=== PATIENT | female | born 1990 | race Caucasian/White ===

== ENCOUNTER 2021-03-22 20:22 | Inpatient (IN) | payer MEDICAID, OTHER ==
[~2021-03-22] VITALS: Ht 167.6 cm; Wt 71.7 kg
--- NOTE | 2021-03-22 20:22 | NUR ---
[id number] FROM LONG-TERM REACTION FROM COMPAZINE, GIVEN BENADRYL 50MG PO, AND 50MG IM, NO RELIEF. PT HX OF DRUG ABUSE HEROIN. GENERALIZED RASHES. A/OX4. PT C/O SOB; SATTING AT 99%. CONNECTED PT TO POX AND MONITOR. [employer] AT PT'S BEDSIDE
--- NOTE | 2021-03-22 22:04 | NUR ---
PT IN NO DISTRESS AT THIS TIME. VSS
[2021-03-22] MEDS ORDERED: IV NS 0.9% 1,000 ML BAG IV ONE (22:30)
--- NOTE | 2021-03-22 22:32 | NUR ---
RAC #20G S/L; PATENT AND INTACT
[2021-03-22 23:00] LABS: BASOPHILS % (AUTO) 0.3 % (0.0-2.0); HEMATOCRIT 45 % (33-45); HEMOGLOBIN 15.4 g/dL (11.5-14.8); LYMPHOCYTES # (AUTO) 1.3 K/uL (0.8-4.8); LYMPHOCYTES % (AUTO) 8.1 % (20.0-44.0); MEAN CORPUSCULAR HGB CONC 34 g/dl (31.0-36.0); MEAN CORPUSCULAR VOLUME 88 fL (82-100); MONOCYTES # (AUTO) 0.9 K/uL (0.1-1.30); MONOCYTES % (AUTO) 5.5 % (2.0-12.0); NEUTROPHILS # (AUTO) 13.7 K/uL (1.8-8.9); NEUTROPHILS % (AUTO) 86.1 % (43.0-81.0); PLATELET COUNT (AUTO) 182 K/uL (150-450); RED BLOOD CELL COUNT(AUTO) 5.15 MIL/uL (4.0-5.2); WHITE BLOOD COUNT (AUTO) 15.9 K/uL (4.3-11.0)
--- NOTE | 2021-03-22 23:15 | NUR ---
COLLECTED URINE AND SENT TO LAB
[2021-03-22 23:26] LABS: CALCIUM, SERUM 9.8 mg/dL (8.5-10.1); CREATININE 0.8 mg/dL (0.6-1.3); POTASSIUM 4.1 mmol/L (3.5-5.1)
[2021-03-22 23:28] LABS: BILIRUBIN,URINE NEGATIVE (NEGATIVE); COLOR,URINE YELLOW (YELLOW); LEUKOCYTE ESTERASE ,URINE NEGATIVE (NEGATIVE); NITRITE, URINE NEGATIVE (NEGATIVE); PH,URINE 6.5 (5.0-8.0); PROTEIN,URINE NEGATIVE (NEGATIVE); UGLUCOSE NEGATIVE (NEGATIVE); UROBILINOGEN,URINE 0.2 EU/dL (0.2)
[2021-03-22 23:34] LABS: ALBUMIN 4.2 g/dL (3.4-5.0); BILIRUBIN,DIRECT 0.2 mg/dL (0.0-0.2); BILIRUBIN,TOTAL 1.1 mg/dL (0.2-1.0); TOTAL PROTEIN, SERUM 8.2 g/dL (6.4-8.2)
--- NOTE | 2021-03-23 01:00 | NUR ---
LAB [facility] AT PT'S BEDSIDE; PT REFUSED BLOODDRAW AT THIS TIME. JOSE SCHAFER NOTIFIED.
[2021-03-23 01:40] LABS: BASOPHILS % (AUTO) 0.2 % (0.0-2.0); HEMATOCRIT 43 % (33-45); HEMOGLOBIN 14.7 g/dL (11.5-14.8); LYMPHOCYTES # (AUTO) 0.9 K/uL (0.8-4.8); LYMPHOCYTES % (AUTO) 7.9 % (20.0-44.0); MEAN CORPUSCULAR HGB CONC 34 g/dl (31.0-36.0); MEAN CORPUSCULAR VOLUME 88 fL (82-100); MONOCYTES # (AUTO) 0.5 K/uL (0.1-1.30); MONOCYTES % (AUTO) 4.3 % (2.0-12.0); NEUTROPHILS # (AUTO) 9.8 K/uL (1.8-8.9); NEUTROPHILS % (AUTO) 87.6 % (43.0-81.0); PLATELET COUNT (AUTO) 166 K/uL (150-450); RED BLOOD CELL COUNT(AUTO) 4.91 MIL/uL (4.0-5.2); WHITE BLOOD COUNT (AUTO) 11.1 K/uL (4.3-11.0)
[2021-03-23] MEDS ORDERED: IV NS 0.9% 1,000 ML BAG IV ONE (03:00)
[2021-03-23] MEDS ORDERED: ONDANSETRON HCL/PF 4 MG/2 ML VIAL IVP PRN (03:30)
[2021-03-23] MEDS ORDERED: ACETAMINOPHEN 325 MG TABLET PO PRN (03:30)
[2021-03-23] MEDS ORDERED: MORPHINE SULFATE INJ 2 MG/ML DISP.SYRIN IV PRN (03:30)
[2021-03-23] MEDS ORDERED: IV NS 0.9% 1,000 ML IV PRN (03:30)
[2021-03-23] MEDS ORDERED: hydrALAZINE HCL IV 20 MG VIAL IV PRN (03:30)
--- NOTE | 2021-03-23 03:33 | NUR ---
MRSA SWAB COLLECTED AND SENT TO LAB. PATIENT'S BELONGINGS LIST DONE.
--- NOTE | 2021-03-23 08:11 | NUR ---
GOT BED 117-1
[2021-03-23] MEDS ORDERED: MORPHINE SULFATE INJ 2 MG/ML DISP.SYRIN ONE (08:16)
[2021-03-23] MEDS ORDERED: ONDANSETRON HCL/PF 4 MG/2 ML VIAL ONE (08:16)
--- NOTE | 2021-03-23 08:21 | NUR ---
ATTEMPTED TO GIVE REPORT, WILL CALL AGAIN LATER
[2021-03-23] MEDS ORDERED: ENOXAPARIN SODIUM 40 MG/0.4 ML DISP.SYRIN SQ SCH (09:00)
[2021-03-23 09:09] VITALS: BP 114/69
--- NOTE | 2021-03-23 09:45 | NUR ---
CRICKET RN NOTE RECEIVED PATIENT FROM ER WITH DX RHABDOMYOLYSIS UNDER CARE DR ZHOU, ALERT ORIENTED ON RA , NO SOB NOTED, ON IVF ORDERED, RT FA INTACT AND FLUSHED WELL STARTED ON IVF ORDERED , VS TAKEN BELONGS CHECKED BY VALUER, HOSPITAL ORIENTATION DONE, BED IN LOWEST AND LOCKED POSITION , WILL CONT TO MONITOR Addendum: 03/23/21 at 1138 by DOTTY MORENO RN [id number] PATIENT ARRIVED FROM ER UNDER POLICE CUSTODY WITH HAND CUFF IN PLACED
--- NOTE | 2021-03-23 09:50 | NUR ---
MS DESHPANDE NOTE POLICE\4 H YOU[employer] DEVELOPMENT SPECIALIST AT BEDSIDE AND RELEASE UNDER POLICE CUSTODY Addendum: 03/23/21 at 1139 by DOTTY MROENO RN HAND CUFF REMOVED
--- NOTE | 2021-03-23 11:39 | NUR ---
MS RN NOTE CHARGE NURSE AT BEDSIDE PATENT WANTS GO ROD SOFIA REMOVED DRY DRESSING APPLIED
--- NOTE | 2021-03-23 11:40 | NUR ---
DIRECTOR OF EVENT MANAGEMENT NOTE PATIENT LEFT AMA, SIGNED FORM AMA ,LEFT HOSPITAL WITH STABLE CONDITION FRIEND PICK HER UP FROM [facility], DR JAUREGUI NOTIFIED
== END 2021-03-23 11:39 | disposition left against medical advice (07) | DRG 351 ==
LOC: ER 20:27 → TRANSITION 03-23 05:54 → MEDSG1 03-23 08:25
PROVIDERS: ADMIT Internal Medicine; ATTEND Internal Medicine
DX: M62.82 Rhabdomyolysis (principal); F11.10 Opioid abuse, uncomplicated; G24.9 Dystonia, unspecified; Z20.822 Contact with and (suspected) exposure to COVID-19
CPT/HCPCS: 36415; 76700-TC; 80048-TC; 80076-TC; 82550-TC; 82553; 83605-TC; 84702-TC; 85025-TC; 87081-TC; G0378; J1650; J2270; J2405; J7030; U0003